=== PATIENT | female | born 1965 | race Two or more races ===

== ENCOUNTER → 2025-03-25 | Outpatient (CLI) | payer MEDICAID, SELFPAY ==
--- NOTE | 2025-03-25 07:30 | XR_ITS ---
Examination: MRI left hip without intravenous contrast. Date and time of exam: March 25, 2025 0758 hours INDICATIONS: Bilateral hip pain for years worse the last 9 months Technique: Multiple MRI images of the left hip have been obtained T1 weighted coronal sections, TR 500, TE 12 Proton density coronal fat saturated images, TR 3000, TE 71 T2-weighted coronal images, 5850, TE 104 T1-weighted axial images, TR 521, TE 12 T2-weighted axial fat suppressed images, TR 5730, TE 103. Findings: Mild narrowing left hip joint Normal marrow edema left hip No bone contusion occult fracture or avascular necrosis High-resolution small [id number] images left hip demonstrate no labral tear No asymmetric hip effusion Bladder intact No pelvic mass IMPRESSION: Mild narrowing left hip joint
--- NOTE | 2025-03-25 07:30 | XR_ITS ---
Examination: MRI right hip without intravenous contrast. Date and time of exam: March 25, 2025 0758 hours INDICATIONS: Right hip pain years Technique: Multiple MRI images of the right hip have been obtained T1 weighted coronal sections, TR 500, TE 12 Proton density coronal fat saturated images, TR 3000, TE 71 T2-weighted coronal images, 5850, TE 104 T1-weighted axial images, TR 521, TE 12 T2-weighted axial fat suppressed images, TR 5730, TE 103. Findings: Mild narrowing right hip joint No right hip occult fracture bone contusion marrow edema or avascular necrosis Fluid in the greater trochanteric bursa IMPRESSION: Mild narrowing right hip joint Greater trochanteric bursitis right hip
== END | disposition home or self-care (01) ==
LOC: SMRI 07:14
PROVIDERS: PCP Registered Nurse; Referring Provider Registered Nurse; Visit Provider Registered Nurse
DX: M70.61 Trochanteric bursitis, right hip (principal); M25.852 Other specified joint disorders, left hip; M25.851 Other specified joint disorders, right hip
CPT/HCPCS: 73721

== ENCOUNTER 2025-10-10 09:59 | Outpatient (AMB) | payer MEDICAID, SELFPAY ==
--- NOTE | 2025-10-10 10:13 | ORTHONT_ITS ---
Vital signs 10/10/25 10:21 Height 1.63 m Height Method Stated Weight 78.5 kg Weight Measurement Method Standing Scale BMI 29.7 BP 110/76 Blood Pressure Source Automatic Cuff Blood Pressure Location Left Upper Arm Position Sitting Respiration 18 Pulse 62 Pulse Source Monitor Temp 97.8 F Temp Source Temporal Artery Scan Pulse Oximetry (%) 96 Oxygen Delivery Method Room Air Med/Allergies Allergies & Medications Allergies codeine Allergy (Verified 10/10/25 10:24) Medication Reconciliation ibuprofen 600 mg tablet 600 mg PO Q6H #30 tabs 03/26/24 [Rx] levothyroxine 25 mcg tablet (Synthroid) 25 mcg PO QDAY 10/10/25 [History Confirmed 10/10/25] loratadine 10 mg tablet 10 mg PO QDAY 10/10/25 [History Confirmed 10/10/25] meloxicam 7.5 mg tablet 7.5 mg PO QDAY #45 tabs 10/10/25 [Rx Confirmed 10/10/25] montelukast 10 mg tablet 10 mg PO QDAY 10/10/25 [History Confirmed 10/10/25] Exam Exam Patient is in no acute distress and is cooperative with the examination today. Breathing is nonlabored. In no respiratory distress. Patient has no paraspinal tenderness. Spinal deformity cannot be appreciated. The gait of the patient is nonantalgic Bilateral extremities were evaluated and demonstrates sensation intact to light touch. Palpable pedal pulses are present. No significant edema is present. Bilateral knees were examined and the patient has full strength and range of motion.. The right hip was examined. Patient was able to flex to 90 degrees, adduct to 30 degrees, abduct to 40 degrees, internally rotate to 20 degrees, and externally rotate to 20 degrees. Patient has a negative logroll. Stinchfield is negative. The patient is nontender diffusely to touch. The left hip was examined. Patient was able to flex to 90 degrees, adduct to 30 degrees, abduct to 40 degrees, internally rotate to 20 degrees, and externally rotate to 20 degrees. Patient has a negative logroll. The stinchfield is negative. Patient has bilateral hip MRIs. He demonstrates trochanteric bursitis and mild arthritis Assessment and Plan Problem List (1) Back pain: Status: Acute Plan: ASSESSMENT AND PLAN 1. Bilateral hip pain: The MRI results indicate that the hips are in good condition, thus ruling out the need for hip surgery. The etiology of the pain does not appear to be hip- related. A prescription for meloxicam will be initiated. Additionally, radiographic imaging of the spine and hips will be ordered to further investigate the cause of the pain. The patient was advised to continue taking ibuprofen 800 mg as needed for pain management until the meloxicam prescription is filled. The potential side effects of meloxicam, including gastrointestinal upset and increased risk of cardiovascular events, were discussed. The importance of taking the medication with food to minimize gastrointestinal discomfort was emphasized. The patient was also advised to avoid taking additional NSAIDs while on meloxicam to prevent adverse effects. Physical therapy was acknowledged as having provided some relief, and its continuation was recommended as part of the pain management strategy. Office Procedures GNS Level of Care Nursing/Assessment Patient Status: Initial/New Patient Nursing Assessment/Reassesment: Medication Reconciliation, Update PMH in EMR and Vital Signs Coordination of Care: Complex Care and Chronic Disease 1-5, Education Complex Pt/Fam, Consent,records obtained, informed consent, Lab and Imaging orders, Results/Orders obtained and Staff clarify orders Special Needs: Language special needs New Patient Charge New Patient Point Assignment: 1102 New Patient Point Charge: RESIDENTIAL FEE APPRAISER Level 3 (2307-2069) MA Intake Visit Data Collection New Patient or Established: New Patient (never been to [facility]) Reason for Visit:: RIGHT HIP BURSITIS Seen by Clinical Staff ONLY (RN/MA): No Homeland [employer] Program Specialist Required: Yes PCP or OBGYN visit in last 3 months: Yes Hx Now: No Do You Feel Safe at Home: Yes Authorities Contacted: N/A Questionairres Past Medical History Past Medical History Have you ever been diagnosed with any of the following: Subjective Visit Visit for: new patient and hip Immunization / Flu Flu Vaccine in the Last 12 Months: Yes Flu Vaccine Exclusion Criteria: Already Received History of Present Illness Chief complaint: RIGHT HIP BURSITIS HISTORY OF PRESENT ILLNESS IArmando, have obtained verbal consent from the patient, to be recorded during this encounter which may include, but not limited to, medical history, examination, treatment plans, and relevant health information.? Patient was informed that recording will be read and reviewed by myself before inclusion in the medical chart. The patient is a 60-year-old female who presents with bilateral hip pain. She reports experiencing pain in both hips, which she describes as more pronounced in the back than the hip itself. She points to the lower back when asked where the pain is the pain is constant throughout the day. She has undergone x-rays and an MRI here. She reports no numbness or stiffness. She has attempted physical therapy, which provided some relief. She has been managing her pain with ibuprofen 800 mg, which only slightly alleviates her discomfort. Personal History Red flag PMH: none BMI Counceling provided: Yes Pain Pain level (0-10): 7 Pain location: anterior Pain quality: sharp, dull and aching Associated signs & symptoms: none Ambulatory data Ambulatory device: none Treatments Number of previous injections: 0 Improvement with previous injections: No Number of Physical Therapy sessions: 0 Improvement with PT: Yes Improvement with NSAIDS: yes (IBUPROFEN) Review of Systems Review of Systems: All systems negative unless otherwise noted in HPI.
[2025-10-10 10:21] VITALS: BP 110/76; PULSE 62; RESP 18; TEMP 36.6; O2SAT 96; BMI 29.7
--- NOTE | 2025-10-10 10:22 | XR_ITS ---
EXAMINATION: Lumbar spine 3 views TECHNIQUE: AP, lateral, coned lateral lower lumbar spine 3 views Date and time: October 10, 2025, 1040 hours INDICATIONS: Back pain for years. FINDINGS: Grade 1 anterolisthesis L4 on L5 Moderate disc narrowing L4-L5 No acute lumbar fracture Mild chronic osteoporotic compression L2 IMPRESSION: Moderate degenerative disc disease L4-L5
--- NOTE | 2025-10-10 10:22 | XR_ITS ---
Examination: Bilateral hips, AP pelvis, 5 views Technique: AP, lateral views both hips, AP pelvis, 5 views Exam date and time: October 10, 2025, 1030 hours INDICATIONS: Hip pain months FINDINGS: Moderate osteopenia Mild to moderate narrowing right hip joint Mild narrowing left hip joint No hip or pelvic fractures IMPRESSION: Mild to moderate narrowing right hip joint Mild narrowing left hip joint Greater trochanteric bursitis right hip
== END 2025-10-10 10:27 | disposition home or self-care (01) ==
PROVIDERS: PCP Registered Nurse; Referring Provider Registered Nurse; Supervising Provider Orthopaedic Surgery Adult Reconstructive Orthopaedic Surgery; Visit Provider Orthopaedic Surgery Adult Reconstructive Orthopaedic Surgery
DX: M25.552 Pain in left hip (principal); M25.551 Pain in right hip; M70.61 Trochanteric bursitis, right hip; M51.369 Other intervertebral disc degeneration, lumbar region without mention of lumbar back pain or lower extremity pain
CPT/HCPCS: 72100; 73522; 99203; G0463